=== PATIENT | male | born 1955 | race Caucasian/White ===

== ENCOUNTER 2017-06-28 09:03 | Emergency (ER) | payer OTHER ==
[~2017-06-28] VITALS: Ht 185.4 cm; Wt 111.1 kg
--- NOTE | 2017-06-28 09:34 | ED GENERAL ADULT ---
History of Present Illness General Chief Complaint: ETOH/Drug Related Complaint Stated Complaint: HIGHWATCH CLEARANCE Source: patient, old records Exam Limitations: no limitations Vital Signs & Intake/Output Vital Signs & Intake/Output Vital Signs Date Time Temp Pulse Resp B/P B/P Pulse O2 O2 Flow FiO2 Mean Ox Delivery Rate 06/28 1328 98.9 92 18 165/88 97 Room Air 06/28 1327 98.9 92 18 165/88 06/28 1051 99.0 75 18 176/102 95 Room Air 06/28 0932 98 Room Air 06/28 0909 98.6 91 18 180/106 98 Room Air Allergies Coded Allergies: No Known Allergies (06/28/17) Triage Note: 61 YO MALE TO TRIAGE FOR HIGHWATCH CLEARENCE, PT REPORTS 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 DENIES ILLEGAL DRUG USE. DENIES SI/HI. Triage Nurses Notes Reviewed? yes Onset: Abrupt Duration: day(s): (1), constant Timing: recent history Injury Environment: home Severity: mild Severity Numbers: 1 No Modifying Factors: none Associated Symptoms: DENIES HPI: 61-year-old male history of depression and alcohol abuse presents with his sister for [facility] clearance. The patient states he had 4 beers prior to arrival. He states he drinks anywhere from 2-10 beers a day. He states he drinks at the end of day after work to help him T stress as he is going through significant family stressors at home including a divorce and drug addicts in the family. He denies any other drug use. He took his Cymbalta today prior to arrival and takes lorazepam at night. Denies SI or HI. No history of going through with [facility] or detox facilities in the past. He denies history of withdrawal seizures DVTs denies any complaints at this time Past History Travel History Traveled to [place] past 21 day No Medical History Any Pertinent Medical History? 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 No Review of Systems Review of Systems Constitutional: Reports: see HPI. Comments Review of systems: See HPI, All other systems negative. Constitutional, no chills no fever, HEENT: no sore throat no congestion, no ear pain Cardiovascular: No chest pain , no palpitation Skin: no rashes, no change in skin Respiratory: No dyspnea no cough GI: No nausea no vomiting, no diarrhea : No dysuria Muscle skeletal: No joint pain, no back pain Neurologic: , no headache Psych: stress Heme/endocrine: No bruising Immunology: No lymphadenopathy Physical Exam Physical Exam General Appearance: well developed/nourished, no apparent distress, alert, awake , comfortable Comments: Well-developed well-nourished patient in no apparent distress. HEENT: Atraumatic, extraocular motion intact Neck: Supple, FROM Back: FROM Cardiovascular: Regular rate and rhythms no murmurs Respiratory: No respiratory distress. Patient speaking in full complete sentences. Breath sounds clear to auscultation bilaterally: NO W/R/R Extremities: full range of motion Neuro: awake, alert, and oriented to person, place and time. There were no obvious focal neurologic abnormalities. Skin: Warm & dry;No appreciable rash on exposed skin Psych: Mood affect normal, normal memory normal judgment. Core Measures ACS in differential dx? No CVA/TIA Diagnosis: No Sepsis Present: No Sepsis Focused Exam Completed? No Progress Differential Diagnoses I considered the following diagnoses in my evaluation of the patient: [Alcohol withdrawal delirium tremens or joint abnormality dehydration Plan of Care: Orders Procedure Date/time Status Regular Diet 06/28 L Active URINE DRUG SCREEN FOR ER ONLY 06/28 904 Complete LIPASE 06/28 904 Complete ETHANOL 06/28 904 Complete COMPREHENSIVE METABOLIC PANEL 06/28 904 Complete CBC WITHOUT DIFFERENTIAL 06/28 904 Complete Laboratory Tests 06/28/17 0928: Anion Gap 14, Estimated GFR > 60, BUN/Creatinine Ratio 15.0, Glucose 129 H, Calcium 9.2, Total Bilirubin 0.5, AST 64 H, ALT 53, Alkaline Phosphatase 82, Total Protein 7.2, Albumin 4.3, Globulin 2.9, Albumin/Globulin Ratio 1.5, Lipase 30, CBC w Diff NO MAN DIFF REQ, RBC 4.53 L, MCV 95.8 H, MCH 32.5 H, MCHC 34.0 , RDW 13.1, MPV 7.5, Gran % 60.0, Lymphocytes % 24.9, Monocytes % 11.7 H, Eosinophils % 3.0, Basophils % 0.4, Absolute Granulocytes 4.1, Absolute Lymphocytes 1.7, Absolute Monocytes 0.8 H, Absolute Eosinophils 0.2, Absolute Basophils 0, Serum Alcohol 83.0 06/28/17 0914: Urine Opiates Screen < 100, Methadone Screen < 40, Barbiturate Screen < 60, Ur Phencyclidine Scrn < 6.00, Amphetamines Screen < 100, U Benzodiazepines Scrn < 85, Urine Cocaine Screen < 50, Urine Cannabis Screen 10.70 Labs ordered old records reviewed patient denies any complaints at this time resting comfortably Patient continues to rest in no acute distress discussed with him and his sister plan of care he has no history of DVTs case discussed with Dr. Lee patient CIWA have been 0. Patient slightly hypertensive however heart rate within normal limits patient denies nausea vomiting tremors or any other complaints at this time 1300 patient continues to rest in no acute distress denies any complaints Initial ED EKG: none Departure Departure Disposition: ACUTE REHAB FACILITY Condition: Stable Clinical Impression Primary Impression: Alcohol abuse Referrals: Marisol Zarco MD (PCP/Family) Additional Instructions: Follow up with [facility] as instructed. Departure Forms: Customer Survey General Discharge Information Critical Care Note Critical Care Note Critical Care Time: non-applicable
[2017-06-28 09:45] LABS: ABSOLUTE BASOPHIL COUNT 0 /CUMM (0.0-0.2); ABSOLUTE EOSINOPHIL COUNT 0.2 /CUMM (0.0-0.7); ABSOLUTE GRANULOCYTE CT 4.1 /CUMM (1.4-6.5); ABSOLUTE LYMPH COUNT 1.7 /CUMM (1.2-3.4); ABSOLUTE MONOCYTE COUNT 0.8 /CUMM (0.10-0.60); BASOPHIL % 0.4 % (0.0-2.0); HEMATOCRIT 43.4 % (42-52); MEAN CORPUSCULAR HGB 32.5 PG (27.0-31.0); MEAN CORPUSCULAR VOLUME 95.8 FL (80.0-94.0); MEAN PLATELET VOLUME 7.5 FL (7.4-10.4); PLATELET COUNT 200 /CUMM (130-400); RBC DISTRIBUTION WIDTH 13.1 % (11.5-14.5); RED BLOOD CELL CT 4.53 /CUMM (4.70-6.10); WHITE BLOOD CELL COUNT 6.8 /CUMM (4.8-10.8)
[2017-06-28 13:28] VITALS: BP 165/88
== END 2017-06-28 14:54 ==
LOC: ERH 09:03
PROVIDERS: Physician Assistant Medical
DX: F10.10 Alcohol abuse, uncomplicated (principal)
CPT/HCPCS: 80307; G0480